=== PATIENT | male | born 1960 | race African-American/Black ===

== ENCOUNTER → 2020-02-22 | Outpatient (CLI) | payer BC ==
[~2020-02-22] MED LIST: ASHW300C PO; CELE200C PO; FENU500C PO; MACA500C PO; OLME20TA17 PO
[2020-02-22 10:07] LABS: BASO # 0.1 x10^3/uL (0.0-0.2); BASO % 1 % (0-3); EOS # 0.2 x10^3/uL (0.0-0.7); EOS % 4 % (0-3); HEMATOCRIT 43.2 % (39.0-53.0); HEMOGLOBIN 14.2 g/dL (13.0-17.5); LYMPH # 1.3 x10^3/uL (1.0-4.8); LYMPH % 26 % (24-48); MEAN CORPUSCULAR HEMOGLOBIN 29 pg (25-35); MEAN CORPUSCULAR HGB CONC 33 g/dL (31-37); MEAN CORPUSCULAR VOLUME 89 fL (79-100); MONO # 0.6 x10^3/uL (0.0-1.1); MONO % 12 % (0-9); NEUT # 2.9 x10^3/uL (1.8-7.7); NEUT % 57 % (31-73); PLATELET COUNT 163 x10^3/uL (140-400); RED BLOOD COUNT 4.86 x10^6/uL (4.30-5.70); RED CELL DISTRIBUTION WIDTH 13.7 % (11.5-14.5)
[2020-02-22 10:15] LABS: ALBUMIN 3.4 g/dL (3.4-5.0); ANION GAP 8 (6-14); BLOOD UREA NITROGEN 32 mg/dL (8-26); CALCIUM 9.5 mg/dL (8.5-10.1); CARBON DIOXIDE 28 mmol/L (21-32); CHLORIDE 105 mmol/L (98-107); CREATININE 1.3 mg/dL (0.7-1.3); GFR 68.1; GLUCOSE 128 mg/dL (70-99); SODIUM 141 mmol/L (136-145)
[2020-02-22 10:16] LABS: C-REACTIVE PROTEIN < 0.6 mg/L (0-3.3)
[2020-02-22 10:20] LABS: PROTHROMBIN TIME PATIENT 12.3 SEC (11.7-14.0)
--- NOTE | 2020-02-22 10:49 | RAD ---
CHEST PA LATERAL History: PRE OP LT SHOULDER SURGERY ON 02/24/20 / Comparison: None. Findings: Frontal and lateral views of the chest were obtained. The cardiomediastinal silhouette is normal. Pulmonary vasculature is normal. The lungs are clear. No pleural effusion or pneumothorax is seen. There is no acute bone abnormality. IMPRESSION: No acute cardiopulmonary process. Electronically signed by: Terrence Nicholson MD (02/22/2020 10:46 AM) [id number]
[2020-02-23 01:09] LABS: HEMOGLOBIN A1C 6.3 % (4.8-5.6)
== END ==
LOC: SURGPAT 09:29
PROVIDERS: ATTEND Orthopaedic Surgery
DX: Z01.818 Encounter for other preprocedural examination (principal); M12.812 Other specific arthropathies, not elsewhere classified, left shoulder
CPT/HCPCS: 36415; 71046; 80048; 82040; 82306; 83036; 85025; 85610; 85730; 86140; 87641

== ENCOUNTER → 2020-03-10 | Outpatient (CLI) | payer BC ==
[~2020-03-10] MED LIST changes: +ALPR0.5T PO; +HYDR-3135 PO
== END ==
LOC: LAB 11:11
PROVIDERS: ATTEND Orthopaedic Surgery
DX: Z01.812 Encounter for preprocedural laboratory examination (principal); Z20.828 Contact with and (suspected) exposure to other viral communicable diseases; M12.812 Other specific arthropathies, not elsewhere classified, left shoulder
CPT/HCPCS: U0003

== ENCOUNTER 2020-03-15 11:30 | Observation (INO) | payer BC ==
[2020-03-15] VITALS (8 sets, daily range): BP systolic 89–107; BP diastolic 52–66
[~2020-03-15] VITALS: Ht 185.4 cm; Wt 87.1 kg
--- NOTE | 2020-03-15 09:53 | HP ---
ADMIT DATE: 03/15/2020 PREOPERATIVE HISTORY AND PHYSICAL CHIEF COMPLAINT: Left shoulder pain. HISTORY OF PRESENT ILLNESS: The patient injured the left shoulder many years ago, has had progressive pain and stiffness affecting his activities of daily living and becoming problematic for his sleep. He cannot reach away from his body and is struggling even to put on his deodorant, cannot reach out to his car window for the drive through for example and has to reach around with his right shoulder. He has had no relief with corticosteroid injections, activity modification or physical therapy and wants to pursue more definitive treatment. PAST MEDICAL HISTORY: History of prostate cancer and hypertension. PAST SURGICAL HISTORY: Prostatectomy and a stomach ulcer surgery in the remote past. FAMILY HISTORY: Significant for mother, father, 2 brothers . Sister alive and healthy. SOCIAL HISTORY: He is a former smoker, quit over 10 years ago with a greater than [id number] history of smoking. Occasional social alcohol consumption. Denies drug use. MEDICATIONS: List is reviewed. ALLERGIES: He has no known drug allergies. REVIEW OF SYSTEMS: Significant for no chest pain. The ongoing left shoulder pain that is unchanged or even worsened. No chest pain, shortness of breath, recent febrile illness or other constitutional symptoms. He did get a COVID vaccine about 2 weeks ago. PHYSICAL EXAMINATION: VITAL SIGNS: Per admission sheet. HEENT: Atraumatic, normocephalic. HEART: Regular rate and rhythm. LUNGS: Clear to auscultation bilaterally. ABDOMEN: Benign. EXTREMITIES: Examination of the left shoulder reveals only about 30 degrees elevation on the left shoulder. It is very painful and crepitant with active or passive range of motion. He has findings of pseudoparalysis. No instability is noted. He has normal parascapular motion and stability. Deltoid function is intact. He has normal examination of the contralateral shoulder, bilateral elbows and wrists. IMAGING: X-rays show severe degenerative change with bony spurring and humeral head elevation. IMPRESSION: Rotator cuff arthropathy, left shoulder. TREATMENT PLAN: I previously gone over with him the combination of degenerative change in the left shoulder, combined with arthritis, which is called rotator cuff arthropathy and an indication for reverse shoulder arthroplasty due to a nonfunctioning rotator cuff. I explained the rationale for the surgery to help get him pain relief and improve his motion and function and the possibility of instability, infection, nerve or blood vessel damage, premature wear or loosening, medical or other anesthetic complications among others. He agrees to proceed with surgical evaluation and treatment with joint center observation to follow. CAMPBELL CAMEJO MD DR: SUGAR/tammy JOB#: [id number] / [id number]
[~2020-03-15 11:30] MED LIST changes: +ACETAMINOPHEN 500 MG TABLET PO PRN; +BUPIVACAINE MPF 0.5% 30 ML VIAL. ONE; +GABAPENTIN 300 MG CAPSULE. PO PRN; +GLYCOPYRROLATE 1 MG/5 ML VIAL. ONE; -HYDR-3135 PO; +HYDROmorphone 2 MG/ML VIAL IV PRN; +IV RINGERS,LACTATED 1000ML 1,000 ML IV SCH; +LIDOCAINE 1% PF 2 ML VIAL. ID PRN; +LIDOCAINE 2% PF 5 ML VIAL. ONE; +MELOXICAM 7.5 MG TABLET PO ONE; +MIDAZOLAM HCL/PF 2 MG/2 ML VIAL. ONE; +MORPHINE SULFATE 2 MG/ML VIAL. IV PRN; +NEOSTIGMINE METHYLSULFATE 5 MG/5 ML SYRINGE. ONE; +ONDANSETRON PF 4 MG/2 ML VIAL. IV PRN; +PROCHLORPERAZINE 10 MG/2 ML VIAL. IV PRN; +PROPOFOL 10 MG/ML (20ML) VIAL. IV ONE; +ROCURONIUM 50 MG/5 ML VIAL. ONE; +TRANEXAMIC ACID 1,000 MG in IV NS 50ML -- 1ST BAG INJ ONE; +TRANEXAMIC ACID 1,000 MG in IV NS 50ML -- 2ND BAG INJ ONE; +fentaNYL PF VIAL 100 MCG/2 ML VIAL IV PRN; +fentaNYL PF VIAL 100 MCG/2 ML VIAL ONE
[2020-03-15] MEDS ORDERED: fentaNYL PF VIAL 100 MCG/2 ML VIAL ONE (11:31)
[2020-03-15] MEDS ORDERED: ROCURONIUM 50 MG/5 ML VIAL. ONE (12:08)
[2020-03-15] MEDS ORDERED: SEVOFLURANE > 120 MINUTES. IH ONE (12:52)
[2020-03-15] MEDS ORDERED: DEXAMETHASONE SOD PHOS 4 MG/ML VIAL ONE (12:52)
[2020-03-15] MEDS ORDERED: PHENYLEPHRINE in 0.9% NACL PF 1 MG/10 ML SYRINGE. IV ONE (12:52)
[2020-03-15] MEDS ORDERED: PHENYLEPHRINE 10 MG/ML VIAL. ONE ×2 (12:52→13:28)
[2020-03-15] MEDS ORDERED: ONDANSETRON PF 4 MG/2 ML VIAL. ONE (12:52)
[2020-03-15] MEDS ORDERED: VASOPRESSIN 20 UNIT/ML VIAL. ONE (13:08)
[2020-03-15] MEDS ORDERED: VANCOMYCIN 1 GM VIAL. ONE (13:46)
[2020-03-15] MEDS ORDERED: GLYCOPYRROLATE 1 MG/5 ML VIAL. ONE (13:49)
[2020-03-15] MEDS ORDERED: NEOSTIGMINE METHYLSULFATE 5 MG/5 ML SYRINGE. ONE (13:49)
[2020-03-15] MEDS ORDERED: traMADol 50 MG TABLET PO PRN (16:45)
[2020-03-15] MEDS ORDERED: ZOLPIDEM 5 MG TABLET. PO PRN (16:45)
[2020-03-15] MEDS ORDERED: PROCHLORPERAZINE 5 MG TABLET. PO PRN (16:45)
[2020-03-15] MEDS: IV NORMAL SALINE 1000ML BAG 1,000 ML IV SCH (16:45)
[2020-03-15] MEDS ORDERED: oxyCODONE/APAP 5/325 1 TAB TABLET PO PRN (16:45)
[2020-03-15] MEDS ORDERED: ACETAMINOPHEN 325 MG TABLET. PO PRN (16:45)
[2020-03-15] MEDS ORDERED: HYDROcodone/APAP 10/325 1 TAB TABLET PO PRN (16:45)
[2020-03-15] MEDS ORDERED: DEXTROSE 50% 25 GM / 50ML DISP.SYRIN. IV PRN (16:45)
[2020-03-15] MEDS ORDERED: CALCIUM CARBONATE 500 MG TAB.CHEW PO PRN (16:45)
[2020-03-15] MEDS ORDERED: NALOXONE 0.4 MG/ML VIAL. IV PRN (16:45)
[2020-03-15] MEDS ORDERED: 0.9 % SODIUM CHLORIDE 10 ML DISP.SYRIN. IV PRN (16:45)
[2020-03-15] MEDS ORDERED: HYDROmorphone 2 MG/ML VIAL IV PRN (16:45)
[2020-03-15] MEDS ORDERED: ALPRAZolam 0.5 MG TABLET PO PRN (17:00)
--- NOTE | 2020-03-15 17:00 | NUR ---
Arrived to unit by bed from PACU. Drowsy but awakens easily. Left shoulder dressing d/i in DonJoy sling. Radial pulse +, and warm. Left arm still numb from anesthesia block, unable to wiggle fingers at this time. IVF's intact and infusing. HERBERT's and SCD's on bilaterally. O2 at 2l per n/c. Oriented to room and controls. Side rails up x's 2 with call light in reach. Cont. monitor.
--- NOTE | 2020-03-15 17:04 | RAD ---
EXAM: 2 Views Left Shoulder DATE: 03/15/2020 4:45 PM INDICATION: Reason: POST OP / Spl. Instructions: True AP of scapula and outlet view, do not move arm / History: COMPARISON: No Prior FINDINGS: Changes of reverse left total shoulder arthroplasty, in good alignment without definite hardware comp lication or fracture 2 postoperative soft tissue changes including foci of gas and skin jc. There is no evidence for acute fracture or dislocation. AC joint is congruent. Humeral head is not high riding. IMPRESSION: 1. Status post reverse left total shoulder arthroplasty, in good alignment without definite hardware complication or fracture. Electronically signed by: Jacoby Bennett MD (03/15/2020 5:02 PM) RAYMUNDO
[2020-03-15] MEDS: FERROUS SULFATE 325 MG TABLET. PO SCH (18:33)
[2020-03-15] MEDS: KETOROLAC TROMETHAMINE 10 MG TABLET PO SCH (18:33)
--- NOTE | 2020-03-15 19:41 | PDOC4 ---
Operative Note Operative Note Date of surgery: 03/15/2020 Preoperative diagnosis: Left rotator cuff arthropathy Postoperative diagnosis: Same Operative procedure: Left reverse shoulder arthroplasty and biceps tenodesis Surgeon: Melita Business Loan Processor: Jaylen shelley assist Anesthesia: General plus scalene block Estimated blood loss: 200 cc Complications: None Operative indications: Please see my clinic note and preoperative history and physical for detailed operative indications and note that we covered risks benefits postoperative course of the procedure and after having given informed consent patient agreed to proceed with surgery Operative text: Patient was identified procedure verified patient placed in the supine position on the operating table. After adequate amounts of general anesthesia plus pre-existing scalene block were obtained he was placed in the T- Max headrest in the beachchair position with spider arm reeves and all bony prominences were well-padded. Left shoulder was prepped and draped in standard sterile fashion and after timeout was performed patient procedure identified and verified a deltopectoral approach was performed cephalic vein was taken laterally the superior aspect of the pectoralis insertion was released for additional exposure clavipectoral fascia was divided and the deltoid insertion was bluntly dissected free to minimize tension on the deltoid throughout the procedure. Subscapularis was divided and tagged and released from its capsular underlying tissue. The shoulder was maximally externally rotated subluxed anteriorly and reamed up to a size 11 where the reverse shoulder trabecular metal system was used as a guide and a cut made in 15 degrees of version proximal reaming carried out and a trial humeral stem was placed. His large surrounding osteophytes were excised to allow better soft tissue exposure and capsular release was carried out glenoid exposure then carried out and the humeral head prior and glenoid were both denuded of articular cartilage. A guidewire was placed in slight declination low on the glenoid surface and initial drilling and subsequent reaming carried out to good bleeding bone. The superior bone was cleared to avoid any interference with the larger reamer to accommodate a 40 mm glenosphere. Glenoid was drilled superiorly to increase bleeding and bony ingrowth and sclerotic bone superiorly. A standard 15 mm trabecular metal baseplate was placed in proper orientation to allow placement of a 42 mm commercial trailer truck driver the scapular spine and another 42 mm screw to the base of the coracoid excellent bite was obtained on both and they were locked in posi tion. A 40 mm diameter glenosphere was impacted in place to engage the Parsons taper and trial fitting carried out with a +3 standard 40 mm diameter trial humeral component. Excellent stability and range of motion was obtained with good deltoid tension. Trial components were then removed from the humerus and a 11 mm nonporous Matt reverse shoulder system 130 mm length stem was assembled on the back table with a +3 40 mm polyethylene liner which was impacted into place in proper version with excellent stability. Shoulder was reduced and had equivalent stability and range of motion. Irrigation was first carried out with dilute Betadine lavage and thorough irrigation with normal saline solution and pulse lavage. Pain catheter mixture was injected throughout the subcutaneous and capsular areas. 1 g vancomycin was sprinkled in the joint and repair of the subscapularis carried out transosseously with max braid suture and superior aspect of subscapularis release was carried out with max braid suture. Closure accomplished subcutaneously with buried Vicryl suture and skin closure with subcuticular Monocryl. Sterile dressings were applied patient was placed in a sling and transferred to recovery room in stable condition having tolerated procedure well. Jaylen foster was present for the procedure assisted in patient positioning prepping draping closure and dressings CAMPBELL CAMEJO MD Mar 15, 2020 19:41
[2020-03-16] MEDS: KETOROLAC TROMETHAMINE 10 MG TABLET PO SCH ×5 (01:04→19:19)
[2020-03-16 02:45] VITALS: BP 114/65
[2020-03-16] MEDS: IV NORMAL SALINE 1000ML BAG 1,000 ML IV SCH (02:54)
[2020-03-16] MEDS: HYDROcodone/APAP 7.5/325MG 1 TAB TABLET PO PRN ×2 (04:02→14:18)
[2020-03-16] MEDS: oxyCODONE/APAP 7.5/325 1 TAB TABLET PO PRN ×2 (05:08→07:06)
[2020-03-16] MEDS ORDERED: MAGNESIUM HYDROXIDE 2,400 MG/30 ML ORAL.SUSP. PO PRN (06:00)
[2020-03-16 06:06] VITALS: BP 160/93
[2020-03-16] MEDS: SENNOSIDES/DOCUSATE 8.6/50MG TABLET. PO SCH (08:29)
[2020-03-16] MEDS: MULTIVITAMIN with MINERAL TABLET. PO SCH (08:30)
[2020-03-16] MEDS: LOSARTAN POTASSIUM 50 MG TABLET. PO SCH (08:30)
[2020-03-16] MEDS: FERROUS SULFATE 325 MG TABLET. PO SCH ×2 (08:30→17:10)
[2020-03-16] MEDS: IV DEXTROSE 5 %-0.45 % NACL 1,000 ML IV SCH ×3 (12:45→22:45)
[2020-03-16 13:29] VITALS: BP 142/78
[2020-03-16] MEDS ORDERED: BISACODYL 10 MG SUPP.RECT. PR PRN (16:00)
[2020-03-16] MEDS ORDERED: HYDR-3135 PO (18:21)
--- NOTE | 2020-03-16 18:24 | DISCH ---
DISCHARGE INSTRUCTIONS Condition on Discharge Condition on Discharge: Stable Activity After Discharge Activity Instructions for Disc: Other, see below (Avoid reaching the arm around the back or elbow moving back beyond the midline of the body) Lifting Instructions after Dis: No heavy lifting Weight Bearing Status after Di: As tolerated Diet after Discharge Diet after Discharge: Regular Wound Incision Care Wound/Incision Care: Ice to area for comfort, Do not change dressing (Call if dressing is saturated or redness) Community/Resources/Services Services at Discharge: PT EVALUATE & TREAT (Motion and early strengthening as tolerated per reverse shoulder protocol) Contacting the after DC Call your doctor for: Concerns you may have Follow-Up Follow up with: Dr. Hua 10 to 14 days CAMPBELL HUA MD Mar 16, 2020 18:24
[2020-03-16 18:29] VITALS: BP 182/84
--- NOTE | 2020-03-16 19:11 | NUR ---
Pt doesn't want to be discharge with blood pressure of 182/84. Notified Dr. Hua waiting for return call.
--- NOTE | 2020-03-16 19:14 | DS ---
DATE OF DISCHARGE: 03/16/2020 ORTHOPEDIC DISCHARGE SUMMARY PRINCIPAL DIAGNOSIS: Rotator cuff arthropathy, left shoulder. PROCEDURE: Left reverse shoulder arthroplasty. DISCHARGE MEDICATIONS: [place] 10/325 one p.o. q.4 hours p.r.n. pain, dispensed #40. Continue preoperative medications. May take ibuprofen 400 mg q.4 hours for inflammation as necessary. ACTIVITY: Standard reverse shoulder protocol. Avoid reaching behind the back for 2 months postoperatively or moving the elbow far beyond the posterior midline of the body. May do pendulum exercises, gentle strengthening physical therapy per standard total reverse shoulder protocol. DISCHARGE INSTRUCTIONS: Follow up with Dr. Hua in 10-14 days. Report any redness, drainage or saturation of the dressing. BRIEF DESCRIPTION OF HOSPITAL COURSE: The patient underwent an uncomplicated reverse shoulder arthroplasty on 03/15/2020. The sensation returned first to his hand, and then he began having pain in the shoulder after the interscalene block were off. He had a similar reaction to Percocet as what he had had in the past, remotely after a bladder surgery with some palpitations and other adverse effects which resolved. He did much better with hydrocodone and some Toradol. On date of discharge, distal neurovascular status is intact. His incision is likewise intact. He has reasonable early range of motion, good stability and mild expected swelling. He went through some physical therapy exercises and was getting around safely and stably, and was discharged in stable condition. CAMPBELL HUA MD DR: SUGAR/tammy JOB#: [id number] / [id number]
[2020-03-16 19:23] VITALS: BP 194/110
--- NOTE | 2020-03-16 19:23 | NUR ---
Patient requesting 1800 Toradol that was held. Toradol given per Patient request. Patient still concerned with B/P and wanting it rechecked. B/P 194/110. Patient requested another dose of his Benicar. Explained to Patient that we paged for orders. Patient stated I just need Benicar. explained to Patient we needed order for any additional medications.
--- NOTE | 2020-03-16 19:31 | NUR ---
Call returned from Dr. Hua. Order received to hold discharge and consult Hospitalist regarding elevated B/P.
--- NOTE | 2020-03-16 19:47 | NUR ---
Consult called to Dr. Dawn service regarding consult. Laura at the service stated she would notify Dr. Reese.
[2020-03-16] MEDS ORDERED: METOPROLOL IV PUSH 5 MG/5 ML VIAL. IVP PRN (20:00)
--- NOTE | 2020-03-16 20:38 | NUR ---
Patient informed about consult and medication ordered from Dr. Reese for his elevated B/P. Patient states "It's all these medications I'm getting making my B/P go up!" Patient states "It will go down since I took my Xanax." Nakia instructed he was not supposed to take his own medication and Alprazolam 1 mg. pill bottle taken from patient's room( 9 whole 1 mg tablets, 2 1/2 tablets, and 3 pieces which appear to total 1/2 tablet). Medication counted with Que Mcknight RN for verification and placed in bag and hand delivered to Chad in pharmacy. receipt placed in Patient's chart. Receipt number [id number]. Addendum: 03/16/20 at 2046 by FELIPE SANTILLAN RN Patient 's B/P at this time 175/105, pulse 105. Patient states "MY pressure will go down more after the Xanax. Will monitor and give Metoprolol per orders as needed.
--- NOTE | 2020-03-16 20:54 | NUR ---
Per protocol from Maria Guadalupe unable to push Metoprolol on this unit and able to push IV Hydralazine. Call to Dr. Reese and order changed to Hydralazine 10 mg IV Q 6 hours PRN SBP > 160.
[2020-03-16] MEDS ORDERED: hydrALAZINE 20 MG/ML VIAL. IVP PRN (21:00)
[2020-03-16 21:18] VITALS: BP 156/94
--- NOTE | 2020-03-16 21:18 | NUR ---
Upon checking B/P reading 156/94, pulse 93. Hydralazine held. Will continue to monitor.
[2020-03-17] MEDS: KETOROLAC TROMETHAMINE 10 MG TABLET PO SCH ×2 (00:26→06:19)
--- NOTE | 2020-03-17 00:36 | NUR ---
Patient's B/P 173/109, pulse 111. Patient verbalized only wanting 1/2 dose of Hydralazine and stating he was scared to take it. Patient request dose of Benicar. Call to Dr. Reese and informed him of Patient concerns. Order received for X1 dose of 25 mg Losartan.
[2020-03-17] MEDS ORDERED: LOSARTAN POTASSIUM 25 MG TABLET. PO ONE (01:00)
[2020-03-17 02:42] VITALS: BP 159/90
[2020-03-17 06:21] VITALS: BP 158/92
[2020-03-17 08:20] VITALS: BP 136/83
[2020-03-17] MEDS: LOSARTAN POTASSIUM 50 MG TABLET. PO SCH (08:20)
[2020-03-17] MEDS: SENNOSIDES/DOCUSATE 8.6/50MG TABLET. PO SCH (08:20)
[2020-03-17] MEDS: MULTIVITAMIN with MINERAL TABLET. PO SCH (08:20)
--- NOTE | 2020-03-17 08:20 | NUR ---
BP better this am 136/83. Received am medications.
[2020-03-17] MEDS: FERROUS SULFATE 325 MG TABLET. PO SCH (08:21)
--- NOTE | 2020-03-17 09:20 | NUR ---
Anxious to go home. Dr. Hua and Dr. Shaver made rounds and gave okay to discharge this am.
--- NOTE | 2020-03-17 10:00 | NUR ---
Discharge instructions given with prescription. Answered questions and concerns. Verbalized understanding. Discharged home escorted out by w/c. Driven by x-.
--- NOTE | 2020-03-17 11:07 | CONS ---
DATE OF CONSULTATION: INTERNAL MEDICINE CONSULT CHIEF COMPLAINT: Left shoulder surgery with postop hypertension. 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 Basically, he has had a chronic shoulder injury and a couple of days ago underwent a left shoulder replacement. He was scheduled for discharge last night, but then his blood pressure started up, so they have consulted us for postop medical evaluation and treatment of comorbidities and blood pressure. PAST MEDICAL HISTORY: Prostate cancer, hypertension, prostatectomy. ALLERGIES: None. FAMILY HISTORY: Diabetes. SOCIAL HISTORY: Does not drink, smoke or take drugs. He works as a information management officer. MEDICATIONS: Reviewed, please refer to the MRAD. REVIEW OF SYSTEMS: GENERAL: No history of weight change, weakness or fevers. SKIN: No bruising, hair changes or rashes. EYES: No blurred, double or loss of vision. NOSE AND THROAT: No history of nosebleeds, hoarseness or sore throat. HEART: No history of palpitations, chest pain or shortness of breath on exertion. LUNGS: Denies cough, hemoptysis, wheezing or shortness of breath. GASTROINTESTINAL: Denies changes in appetite, nausea, vomiting, diarrhea or constipation. GENITOURINARY: No history of frequency, urgency, hesitancy or nocturia. NEUROLOGIC: Denies history of numbness, tingling, tremor or weakness. PSYCHIATRIC: No history of panic, anxiety or depression. ENDOCRINE: No history of heat or cold intolerance, polyuria or polydipsia. EXTREMITIES: Denies muscle weakness, joint pain, pain on walking or stiffness. PHYSICAL EXAMINATION: VITALS: Blood pressure currently is 136/83. GENERAL: No apparent distress. Alert and oriented. HEENT: Normal cephalic atraumatic, external auditory canals are patent EYES: Extraocular muscles are intact, pupils are equally round and reactive to light and accommodation MUSCULOSKELETAL: Well developed, well nourished, good range of motion ENDOCRINE: No thyromegaly was palpated LYMPHATICS: No cervical chain or axillary nodes were noted HEMATOPOIETIC: No bruising NECK: Supple, no JVD, no thyromegaly was noted. LUNGS: Clear to auscultation in all lung lynne without rhonchi or wheezing. HEART: RRR, S1, S2 present. Peripheral pulses intact, no obvious murmurs were noted. ABDOMEN: Soft, nontender. Positive bowel sounds no organomegaly, normal bowel sounds. EXTREMITIES: The left shoulder has clean, dry and intact dressing. NEUROLOGIC: Normal speech, normal tone. A and O x 3, moves all extremities, no obvious focal deficits. PSYCHIATRIC: Normal affect, normal mood. Stable. SKIN: No ulcerations or rashes, good skin turgor, no jaundice. VASCULAR: Good capillary refill, neurovascular bundle appears to be intact. ASSESSMENT AND PLAN: Postop hypertension that seems to be resolving. We resumed his home meds. Clinically, he looks great. We will go ahead and discharge. DISPOSITION: Home. ACTIVITY: As tolerated. DIET: Low sodium. MEDICATIONS: Please see the MRAD. TOTAL TIME: 32 minutes. MARTINA CHILEL DO DR: REJI/tammy JOB#: [id number] / [id number] CAMPBELL Danielle MD
--- NOTE | 2020-03-18 11:50 | DS ---
DATE OF DISCHARGE: 03/17/2020 ADDENDUM BRIEF DESCRIPTION OF HOSPITAL COURSE: The patient was originally scheduled for discharge on 03/16/2020, but then had an episode of very high blood pressure approximately 191/110. This did not resolve despite his usual blood pressure medications. Hospitalist consultation was obtained. They, however, felt that this was really more due to anxiety than any structural causes, recommended his normal blood pressure medication as he was only slightly hypertensive following this episode and was discharged home in stable condition with continued instructions for the left reverse shoulder arthroplasty and based on the hospitalist's recommendation to follow up with his primary care physician promptly in terms of his blood pressure medication and any adjustments. CAMPBELL CAMEJO MD DR: SUGAR/tammy JOB#: [id number] / [id number]
--- NOTE | 2020-03-21 09:59 | NUR ---
Cefazolin started at 08:26 on 03/16--stop time 08:56 on 03/16
== END 2020-03-17 10:00 | disposition home or self-care (01) ==
LOC: EDSTATUS 11:30 → 4 SOUTHEST 16:38 → INTOOBSV 16:38
PROVIDERS: ADMIT Orthopaedic Surgery; ATTEND Orthopaedic Surgery
DX: M75.120 Complete rotator cuff tear or rupture of unspecified shoulder, not specified as traumatic (principal); M19.90 Unspecified osteoarthritis, unspecified site; I10 Essential (primary) hypertension; Z85.46 Personal history of malignant neoplasm of prostate; Z87.891 Personal history of nicotine dependence; Z96.612 Presence of left artificial shoulder joint; Z87.11 Personal history of peptic ulcer disease
CPT/HCPCS: 23472; 36415; 73030; 86850; 86900; 86901; 96365; 96366; 97110; 97116; 97162; 97166; 97530; 97535; A4565; C1769; C1776; G0378; G0379; J0690; J0780; J1100; J2250; J2370; J2405; J2704; J2710; J3010; J3370; J3490; J7120; C1880

== ENCOUNTER → 2021-03-22 | Outpatient (CLI) | payer BC ==
[~2021-03-22] MED LIST changes: -ACETAMINOPHEN 500 MG TABLET PO PRN; +ARGI500T2 PO; -BUPIVACAINE MPF 0.5% 30 ML VIAL. ONE; -GABAPENTIN 300 MG CAPSULE. PO PRN; -GLYCOPYRROLATE 1 MG/5 ML VIAL. ONE; +HYDR-3135 PO; -HYDROmorphone 2 MG/ML VIAL IV PRN; +IOHEXOL 180 MG/ML 10 ML VIAL. ONE; -IV RINGERS,LACTATED 1000ML 1,000 ML IV SCH; -LIDOCAINE 1% PF 2 ML VIAL. ID PRN; -LIDOCAINE 2% PF 5 ML VIAL. ONE; -MELOXICAM 7.5 MG TABLET PO ONE; -MIDAZOLAM HCL/PF 2 MG/2 ML VIAL. ONE; -MORPHINE SULFATE 2 MG/ML VIAL. IV PRN; +NAPR-514 PO; -NEOSTIGMINE METHYLSULFATE 5 MG/5 ML SYRINGE. ONE; -ONDANSETRON PF 4 MG/2 ML VIAL. IV PRN; -PROCHLORPERAZINE 10 MG/2 ML VIAL. IV PRN; -PROPOFOL 10 MG/ML (20ML) VIAL. IV ONE; -ROCURONIUM 50 MG/5 ML VIAL. ONE; -TRANEXAMIC ACID 1,000 MG in IV NS 50ML -- 1ST BAG INJ ONE; -TRANEXAMIC ACID 1,000 MG in IV NS 50ML -- 2ND BAG INJ ONE; -fentaNYL PF VIAL 100 MCG/2 ML VIAL IV PRN; -fentaNYL PF VIAL 100 MCG/2 ML VIAL ONE; +methylPREDNISolone ACETATE 40 MG/ML VIAL. ONE; +methylPREDNISolone ACETATE 80 MG/ML VIAL. ONE
--- NOTE | 2021-03-22 12:37 | PDOC1 ---
INITIAL PAIN CONSULT DATE OF SERVICE: DOS: DATE: 03/22/21 TIME: 12:31 CHIEF COMPLAINT: Chief Complaint: Neck and left upper extremity HISTORY OF PRESENT ILLNESS: 61-year-old male presents with history of pain in the base the neck and left upper extremity for about 2 months patient reports was not result of any specific injury or accident that he is aware of but has had significant pain the base of neck rating the left shoulder posterior scapular region into the posterior deltoid tricep and in the bicep and into the forearm with weakness in the left hand and weakness in the flower stripper on the left hand patient reports his second and third fingers especially affected with some numbness and tingling as well patient reports is worse with repetitive motions lifting reaching forward reaching over his head with his left arm better with resting or in a neutral position to his side patient reports generally does not awaken her from sleep at night even if he lays on his left side does affect his bowel bladder control was ability to walk or work patient has had chiropractic treatment as well as doing stretching strength exercises on his own stays very active and works out daily b ut has been difficult because of the fatigue in the left arm is much more noticeable now especially in the wrist patient reports its best when he is stretching out or staying immobile. Patient reports it is a sharp pain that shooting in the arm intermittent intensity change during the day worse with activity tingling and numbness radiating into the left hand and arm as well as an aching pain in the left arm. Patient rates disability rating 0-10 10 being the worst as a 3 with recreation and social activity and sexual behavior 5 with occupation for with self-care to life support activities. Patient has been taking [id number] naproxen as well as a muscle relaxer without significant improvement prednisone to reduce the pain by about 80% with 10 to 20 mg. Patient did have plain films of the cervical spine showing reverse left total shoulder arthroplasty and displaced narrowing with endplate remodeling and osteophytosis at C3-C7 multilevel facet arthropathy. Patient reports a loss of motor function with significant fatigability with left upper extremity with repetitive motions and weightbearing. PAST MEDICAL HISTORY: PMH: Hypertension, arthritis, anxiety, prostate cancer PREVIOUS SURGERIES: Past Surgical Hx: Prostatectomy, left shoulder reverse arthroplasty, stomach ulcer surgery CURRENT MEDICATIONS: Current Meds: Active Scripts Medications Dose Route/Sig Max Daily Dose Days Date Category L-Arginine (Arginine) 500 Mg Tablet 1 Tab PO DAILY 30 03/22/21 Reported Naproxen 500 Mg Tablet 1 Tab PO BID 30 03/22/21 Reported Fenugreek (Fenugreek Seed Extract) 500 Mg Capsule 500 Mg PO DAILY 02/22/20 Reported Nanci (Nanci Extract) 500 Mg Capsule 500 Mg PO DAILY 02/22/20 Reported Ashwagandha Root Extract 300 Mg Capsule 300 Mg PO DAILY 02/22/20 Reported Celebrex (Celecoxib) 200 Mg Capsule 1 Cap PO DAILY 02/22/20 Reported Benicar (Olmesartan Medoxomil) 20 Mg Tablet 1 Tab PO DAILY 30 02/22/20 Reported ALLERGIES; Allergies: Coded Allergies: No Known Drug Allergies (Unverified , 02/22/20) FAMILY HISTORY: Family Hx: No major medical conditions that he lists SOCIAL HISTORY: Social Hx: Patient drinks alcohol about 1 drink daily, does not smoke not use any illegal illicit or recreational drugs is single lives locally in [facility] and works as a operations officer [employer] REVIEW OF SYSTEMS: ROS: Positive for those items mentioned in history of present illness, all systems are reviewed, otherwise negative ,and are complete full and well-documented on patient's chart. PHYSICAL EXAM: VS: Blood pressure is 125/90 pulse 74 respirations 16 temperature 97.9 F height is 73 inches weight is 200 pounds PE: PHYSICAL EXAMINATION: GENERAL: The patient is awake, alert, oriented, appropriate, very pleasant in demeanor HEENT: Shows normocephalic, atraumatic. Extraocular movements are intact and symmetrical. Oral cavity: Mucous membranes moist and pink. Dentition is intact. NECK: Shows anterior throat supple without palpable lymphadenopathy noted. Swallow reflex symmetrical. CHEST: Shows normal on inspection. Breath sounds are clear bilaterally, no rales rhonchi wheezes auscultated. HEART: Shows S1, S2 clear. No murmurs auscultated. ABDOMEN: Soft, nontender, nondistended. No palpable organomegaly is noted. No rebound or guarding demonstrated. BACK: Shows spine grossly in the midline. Normal-appearing cervical lordotic curvature. Cervical paraspinous muscles show symmetrical inspection, on palpation some moderate tenderness diffusely bilaterally diffusely without significant radiation. Patient is full rotation motion cervical spine with moderate tenderness with far left lateral rotation but no radiation to the upper extremity. There is slightly increased thoracic kyphosis, some minor flattening of the lumbar lordotic curvature. EXTREMITIES: Upper extremities show deep tendon reflexes 2+ in the biceps and tr iceps tendons. Motor exam is 5 on a scale of 5 with right flower stripper, biceps and triceps flexion and 4/5 on the left. Peripheral pulses are 2+ radial. No peripheral edema is noted bilaterally. Upper extremities are warm and dry to touch, equal in color and appearance. Patient's left shoulder shows well-healed surgical scar on the anterior deltoid from reverse total shoulder replacement. Shoulder shrug is strong and intact without loss of strength on resistance. SKIN: Shows warm and dry, good turgor. No edema. No sores, rashes or bruising throughout. IMPRESSION: Impression: 61-year-old male with approximate 2-month history increasing pain base of neck left upper extremity radicular fashion Cervical spine films as noted Hypertension Arthritis History of prostate cancer Plan: Options were discussed with the patient including conservative managements continued physical therapies and interventional techniques. Patient would like to proceed with techniques. We discussed a cervical epidural steroid injection using descriptions as well as anatomical models to describe the procedure. Risks were discussed including but not limited to: Bleeding, infection, possibility of epidural hematoma and subsequent neurological compromise, dural puncture, headaches, spinal cord and/or nerve damage, side effects of steroid medication, and poor results regarding pain control. Patient understands and wished to proceed. Patient will return to clinic in approximately 4 weeks for follow-up, was counseled as to return appointment, activity level, and side effect to be aware of. Procedure cervical epidural steroid injection at the C6-7 level, using local anesthetic under sterile prep and drape using C-arm fluoroscopic guidance under local anesthesia medications injected ;120 mg Depo-Medrol +5 mL normal saline and 2 mL contrast; condition at discharge is stable patient tolerated procedure well. and had no complications VIELKA DELANEY MD Mar 22, 2021 12:37
--- NOTE | 2021-03-22 12:38 | PDOC4 ---
Procedure Note: ICD 10 Code: ICD 10 Code: M54.12 M50.30 Procedure Note: Patient was consented for cervical epidural steroid injection with fluoroscopic guidance. Risks were discussed including but not limited to: Bleeding, infection, possibility of epidural hematoma and subsequent neurological compromise, dural puncture, headaches, spinal cord and/or nerve damage, side effects of steroid medication, and poor results regarding pain control. Patient understands and wished to proceed. Procedure cervical epidural steroid injection at the C6-7 level, using local anesthetic under sterile prep and drape using C-arm fluoroscopic guidance under local anesthesia medications injected ;120 mg Depo-Medrol +5 mL normal saline and 2 mL contrast; condition at discharge is stable patient tolerated procedure well. and had no complications VIELKA DELANEY MD Mar 22, 2021 12:38
== END | disposition home or self-care (01) ==
LOC: PNCL 11:06
PROVIDERS: ATTEND Anesthesiology
DX: M50.10 Cervical disc disorder with radiculopathy, unspecified cervical region (principal); M54.2 Cervicalgia; M54.12 Radiculopathy, cervical region; I10 Essential (primary) hypertension; M19.90 Unspecified osteoarthritis, unspecified site; F41.9 Anxiety disorder, unspecified; Z85.46 Personal history of malignant neoplasm of prostate; Z79.899 Other long term (current) drug therapy; Z98.890 Other specified postprocedural states; Z87.891 Personal history of nicotine dependence
CPT/HCPCS: 62321; 99214; J1030; J1040; Q9965; G0463